=== PATIENT | female | born 1960 | race Caucasian/White ===

== ENCOUNTER 2016-12-16 17:40 | Emergency (ER) | payer OTHER ==
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
[2016-12-16 19:22] VITALS: TEMP 97.3; O2SAT 93
[2016-12-16] MEDS ORDERED: ORPHENADRINE CITRATE 30 MG/ML AMP IM ONE (19:29)
[2016-12-16] MEDS ORDERED: KETOROLAC TROMETHAMINE INJ 30 MG/ML VIAL IM ONE (19:29)
[2016-12-16] MEDS ORDERED: HYDROCOD/APAP 7.5/325 (ER DISP) #3 TAB PO ONE (19:30)
[2016-12-16 19:38] VITALS: BP 143/83
== END 2016-12-16 19:59 | disposition home or self-care (01) ==
LOC: ER 17:40
DX: S13.4XXA Sprain of ligaments of cervical spine, initial encounter (principal); G40.909 Epilepsy, unspecified, not intractable, without status epilepticus; Z87.891 Personal history of nicotine dependence; Z79.899 Other long term (current) drug therapy; V54.5XXA Driver of pick-up truck or van injured in collision with heavy transport vehicle or bus in traffic accident, initial encounter; Y92.414 Local residential or business street as the place of occurrence of the external cause
CPT/HCPCS: 72050; J1885; J2360

== ENCOUNTER → 2018-02-16 | Outpatient (CLI) | payer OTHER ==
--- NOTE | 2018-02-16 21:24 | MRI ---
EXAM DESCRIPTION: Lumbar Spine w/o Contrast : Magnetic Resonance Imaging. CLINICAL HISTORY: LOW BACK PN COMPARISON: MRI scan lumbar spine 09/16/2017. TECHNIQUE: Multiplanar, multiple standard sequences, non contrast MRI, lumbar spine. FINDINGS: L5-S1: Desiccation of the disc. Moderate disc space loss. Anterior and bilateral Modic type II endplate reactive changes. Trace retrolisthesis. Posterior midline disc osteophyte bulge abutting the thecal sac with mild narrowing. Mild right foraminal stenosis and borderline left foraminal stenosis. Minimal facet arthrosis bilaterally. L4-5: Minimal disc desiccation. No disc space loss. Trace posterior bulge. Moderate flavum ligament hypertrophy and mild facet arthrosis impressing on the thecal sac. Borderline mild canal stenosis. Mild to moderate right foraminal narrowing and mild left foraminal narrowing. L3-4: Disc desiccation. Anterior endplate brain to moderate degenerative changes. Mild bilateral foraminal narrowing. Bilateral flavum ligament hypertrophy. Moderate canal narrowing. Facets are negative. L2-3: Disc desiccation and anterior bulging with endplate hypertrophy. Modic type II endplate reactive changes anterior. No significant posterior bulging. Bilateral flavum ligament hypertrophy and mild canal narrowing. Bilateral foramina are patent. L1-2: Disc desiccation anterior bulging and endplate ridging. Minimal disc space loss. Posterior minimal disc bulging. Posterior flavum ligament hypertrophy. Conus terminates at L1. Normal signal in the disc and no bulging. Canal and foramina are patent. Posterior elements are unremarkable. Upper spine is slightly kyphotic, otherwise unremarkable. Paravertebral soft tissues show paraspinal muscle atrophy.. Otherwise normal marrow signal in the remaining vertebral bodies and the posterior elements. Vertebral bodies are not compressed at any level. IMPRESSION: 1. Anterior and bilateral spondylosis L5-S1. Bilateral foraminal stenosis and mild canal narrowing. Correlate for bilateral S1 radiculopathy. 2. Multifactorial borderline mild canal stenosis L4-5. Correlate for impingement of the L5 nerve roots. 3. Moderate spondylosis anterior L2-3 with disc bulging and anterior endplate spurs. Mild canal narrowing. Electronically signed by: Andrew Zafar MD 02/16/2018 9:22 PM CDT
== END ==
LOC: MRI 10:00
PROVIDERS: ATTEND Family Medicine
DX: M51.26 Other intervertebral disc displacement, lumbar region (principal); M48.061 Spinal stenosis, lumbar region without neurogenic claudication; M54.5 Low back pain

== ENCOUNTER → 2018-09-27 | Outpatient (CLI) | payer OTHER ==
--- NOTE | 2018-09-27 17:08 | US ---
US THYROID CLINICAL STATEMENT: NONTOXIC SINGLE THYROID NODULE. No palpable mass. No history of thyroid surgery or therapy. COMPARISON: None TECHNIQUE: Transcutaneous scanning, grayscale and Doppler modes. FINDINGS: Size right thyroid lobe: 5.1 x 2.1 x 1.4 cm Size left thyroid lobe: 1.7 x 1.3 cm transverse. Longitudinal measurement was not obtained. Size isthmus: 0.39 cm Estimated total number of nodules greater than or equal to 1 cm: None. No cysts. Heterogeneous tissues. Nodule 1: Size: 0.9 x 0.8 x 0.6 cm Location: Right Upper Composition: solid or almost completely solid: 2 points Echogenicity: hypoechoic: 2 points Shape: wider than tall: 0 points Margins: smooth: 0 points. Minimal vascularity. Echogenic foci: none: 0 points ACR Total Points: 4; ACR TI-RADS risk category: TR4 - moderately suspicious nodule. Nodule 2: Size: 0.7 x 0.6 x 0.4 cm Location: Left Upper Composition: solid or almost completely solid: 2 points Echogenicity: hypoechoic: 2 points Shape: wider than tall: 0 points Margins: smooth: 0 points Echogenic foci: none: 0 points ACR Total Points: 4; ACR TI-RADS risk category: TR4 - moderately suspicious nodule. Nodule 3: Size: 0.6 x 0.6 x 0.4 cm Location: Left Upper Composition: solid or almost completely solid: 2 points Echogenicity: hypoechoic: 2 points Shape: wider than tall: 0 points Margins: smooth: 0 points Echogenic foci: none: 0 points ACR Total Points: 4; ACR TI-RADS risk category: TR4 - moderately suspicious nodule. Nodule 4: Size: 0.6 x 0.5 x 0.3 cm Location: Left Lower Composition: mixed cystic and solid: 1 point Echogenicity: hypoechoic: 2 points Shape: wider than tall: 0 points Margins: smooth: 0 points Echogenic foci: none: 0 points ACR Total Points: 3; ACR TI-RADS risk category: TR3 - mildly suspicious nodule. In the adjacent soft tissues, no dominant solid mass or distinct cyst. No parenchymal edema or large calcifications. No overlying skin changes. Normal vascularity. IMPRESSION: 1. Nodule 1: ACR TI-RADS 2017 Category TR4. Recommend: No further follow-up.. Recommendations based upon [facility] Best Practice recommendations and ACR TI-RADS 2017 guidelines. Please see below*. 2. Nodule 2: ACR TI-RADS 2017 Category TR4. Recommend: No further follow-up. 3. Nodule 3: ACR TI-RADS 2017 Category TR4. Recommend: No further follow-up. 4. Nodule 4: ACR TI-RADS 2017 Category TR3. Recommend: No further follow-up. Soft tissues around the thyroid gland are unremarkable. *ACR TI-RADS 2017 Recommendations: TR1: No FNA or follow up TR2: No FNA or follow up TR3: FNA if >/= 2.5 cm, follow up if 1.5 - 2.4 cm in 1, 3, and 5 years TR4: FNA if >/= 1.5 cm, follow up if 1.0 - 1.4 cm in 1, 2, 3, and 5 years TR5: FNA if >/= 1.0 cm, follow up if 0.5 - 0.9 cm every year for 5 years ACR TI-RADS recommends that no more than two nodules with the highest ACR TI-RADS total point should be biopsied and no more than four nodules should be followed. These recommendations do not apply to patients with increased risk for thyroid cancer or patients with symptomatic thyroid disease. Electronically signed by: Andrew Zafar MD 09/27/2018 5:05 PM CDT
== END ==
LOC: US 09:00
PROVIDERS: ATTEND Family Medicine
DX: E04.2 Nontoxic multinodular goiter (principal)

== ENCOUNTER → 2018-12-27 | Outpatient (CLI) | payer OTHER ==
--- NOTE | 2018-12-27 13:36 | CT ---
EXAM DESCRIPTION: CTA Head (accession [id number]), CTA Neck (accession [id number]) CLINICAL HISTORY: 58 years, Female, Carotid stenosis COMPARISON: None TECHNIQUE: Rapid bolus administration of nonionicIV contrast was performed with thin-section axial scanning of the neck and head performed in a dynamic fashion. Reconstructed multiplanar and three dimensional MIP and/or VRT images were created on a separate dedicated workstation were reviewed along with the source axial images and stored in the patient's medical record. Stenoses were evaluated using the NASCET criteria. This exam was performed according to our departmental dose-optimization program, which includes automated exposure control, adjustment of the mA and/or kV according to patient size and/or use of iterative reconstruction technique. FINDINGS: CTA NECK: Bolus enhanced examination of the neck from the aortic arch to the skull base was performed. Moderate emphysematous changes in both upper lung foster is apparent. Aortic arch calcification with mild atherosclerosis at the origin of the great vessels is present. A segment of the left common carotid artery is obscured by dense contrast in the left innominate vein. The origin of the smaller nondominant right vertebral artery is poorly visualized secondary to artifact from the dense venous contrast. Image quality is degraded by the thick axial slices obtained and large [id number] utilized. Right common carotid artery is patent with modest soft plaque but no significant stenosis there is focal plaque at the origin of the right internal carotid artery. High-grade stenosis at the origin of the ICA should be considered with extensive calcific plaque luminal diameter stenosis likely between 60 and 80%. There is additional plaque further distally but without high-grade stenosis involving the mid internal carotid artery. On the left, above the thoracic outlet common carotid artery is patent. Just distal to the bifurcation of the common carotid artery and the proximal internal carotid artery there is mixed calcific and soft plaque. High-grade stenosis of the proximal internal carotid artery estimated between 60 and 80% is suspected. The ICA is widely patent to the level of the skull base beyond this. Patent vertebral arteries dominant on the left are present to the intracranial level and basilar artery. CTA HEAD: CTA brain demonstrates visualization of all the major intracranial vascular structures. There is surface atherosclerotic calcification of each carotid siphon but without evidence for high-grade stenosis on the thicker slice images provided. The supraclinoid portion of each internal carotid artery and the internal carotid bifurcations are widely patent with satisfactory filling of both anterior and both middle cerebral branches. High-grade stenosis or occlusion is not apparent. Basilar artery is patent with a left posterior cerebral artery arising from the anterior circulation and the right posterior cerebral artery arising from the basilar tip. This represents an anatomic variant. Both superior cerebellar arteries are identified. IMPRESSION: 1. Suboptimal evaluation with diminished resolution secondary to thicker slice technique and large [id number] utilized. Image quality of thoracic outlet is limited by residual dense contrast in the left subclavian vein. 2. Suspected hemodynamically significant stenoses each carotid bifurcation and proximal ICA with between 60 and 80% stenosis at or just distal to each ICA origin bilaterally. 3. Dominant patent left vertebral artery and patent smaller right vertebral artery with poor delineation of the origin of that vessel. 4. Suboptimal visualization of the proximal segment of the left common carotid artery just above the arch secondary to beam hardening artifact 5. Essentially negative CTA of the brain with contrast enhancement. Electronically signed by: Adrián Gillespie MD 12/27/2018 1:34 PM CDT
== END ==
LOC: CT 09:38
DX: I65.29 Occlusion and stenosis of unspecified carotid artery (principal)